=== PATIENT | male | born 1945 | race Caucasian/White ===

== ENCOUNTER 2023-08-30 18:13 | Observation (INO) | payer MEDICARE, SELFPAY ==
[2023-08-30] VITALS (8 sets, daily range): BP systolic 143–173; BP diastolic 72–104; BMI 24.1; BMI 23.7
--- NOTE | 2023-08-30 13:18 | ED.GENMED ---
History of Present Illness
General
Chief Complaint: Abdominal Symptoms
Source: patient
Exam Limitations: none
Time Seen by Provider: 08/30/23 13:07
Nursing documentation reviewed up to this point in time: agreed with
Travel History
Have you had any contact with someone who has COVID-19?: No
Do you have any symptoms of coronavirus? Fever > 100 degrees, chills, cough, shortness of breath, sore throat, loss of taste or smell, muscle aches, or headache?: No
History of Present Illness
History of Present Illness:
77-year-old male with past medical history of BPH presenting to the emergency department today with concerns of nausea vomiting and a little diarrhea over the past 4 days nausea vomiting was maximal 4 days ago and 3 days ago has improved but has had
some trouble tolerating by mouth feels like he may be dehydrated at this point does have some lightheadedness. Does have some ongoing nausea but no ongoing over the past 2 days. No abdominal pain.
Past History
Past History
ED Past Medical History: Hypercholesterolemia and Other (Prostate enlargement)
ED Past Surgical History: Urological
Social History
Tobacco: Non-smoker
Alcohol: None
Drug: None
Living: alone
Employment: Retired
Family History
Family History: Other (Noncontributory)
Review of Systems
Review of Systems
Allergies reviewed?: Yes
All Other Systems: ROS reviewed and negative except as documented in HPI and ROS
Phy Exam
Physical Exam
Physical Exam:
GENERAL: Alert , in no apparent distress
EYE: pupils equal and reactive
NECK: Supple, no significant adenopathy.
ENT: o/p clr, mmm.
CARDIAC: Regular rate and rhythm .
LUNGS: Clear breath sounds bilaterally, no acute respiratory distress, no wheezes/rales/rhonchi
ABDOMEN: Soft, without focal tenderness, no r/g, no cvat
NEUROLOGICAL: Alert and oriented, no focal neuro deficits
SKIN: Warm and dry, skin intact.
MUSCULOSKELETAL: No edema, well perfused.
PSYCH: Normal and appropriate interaction.
Course
Orders/Labs/Results
Orders:
Orders
08/30/23 13:17
0.9% Sodium Chloride 1000 ml [Nss] 1,000 ml IV BOLUS
Famotidine [Pepcid] 20 mg IV NOW STA
Ondansetron Injectable [Zofran] 4 mg IV NOW STA
08/30/23 13:18
Electrocardiogram (*1) Stat
Reason for Study: Abdominal Pain
EKG- Treatment ONCE
08/30/23 13:22
Complete Blood Count/With Diff Urgent
Comprehensive Metabolic Panel Urgent
Lipase Urgent
08/30/23 14:18
Urinalysis Reflex To Culture Urgent
Date Specimen was Collected: 08/30/23
Time Specimen was Collected: 14:08
08/30/23 17:41
Admit/Transfer Patient As Directed
Co-Sign Provider:
Level of Care: Observation services
Assign to:: Medical/Surgical
Physician / Group: matt
Diagnosis: gastroenteritis
08/30/23 17:42
Code Status As Directed
Resuscitation Status: Full Code
Abnormal Lab Results
08/30/23 08/30/23
13:22 14:18
WBC 12.2 H 10^3/uL
(4.8-10.8)
Absolute Neuts (auto) 10.3 H 10^3/uL
(1.4-6.5)
Absolute Lymphs (auto) 0.9 L 10^3/uL
(1.2-3.4)
Absolute Monos (auto) 1.0 H 10^3/uL
(0.1-0.6)
Neutrophils % 84.3 H %
(42.2-75.2)
Lymphocytes % 7.5 L %
(20.5-51.1)
BUN 26 H mg/dl
(9-20)
Glucose 184 H mg/dl
(70-99)
Urine Glucose Trace A
(Negative)
08/30/23 13:22
08/30/23 13:22
Vital Signs
Initial and Last Documented VS:
Initial Vital Signs
Temp Pulse Resp BP Pulse Ox
98.2 F 88 18 158/99 95
08/30/23 13:01 08/30/23 13:01 08/30/23 13:01 08/30/23 13:01 08/30/23 13:01
Last Documented Vital Signs
Temp Pulse Resp BP Pulse Ox
98.2 F 80 15 163/104 95
08/30/23 13:01 08/30/23 17:15 08/30/23 17:15 08/30/23 17:02 08/30/23 17:15
MDM/Problems Addressed
MDM/Problems Addressed:
77-year-old male presenting to the emergency department today with concerns of nausea vomiting and [place] diarrhea starting 4 days ago was maximal over the first 2 days and has improved but has decreased oral intake since. He feels that he may be
dehydrated feel some lightheadedness. Upon arrival vital signs are normal. No distress abdomen is benign. Patient claims he still feels lightheaded when walking he was given a liter fluid here. He feels unsafe going home he does live by himself
plan to admit for further monitoring overnight.
*Critical Care Note
Total Time (30-74mins, 75-104mins- exclusive of procedures): Not Applicable
ED Attending Note
-
Portions of this chart may have been created with voice recognition software.� Occasional wrong word or��sound alike� substitutions may have occurred due to the inherent limitations of voice recognition software.
Discharge Plan
Departure
Patient Disposition: Admit
Date of Disposition: 08/30/23
Time of Disposition: 18:07
Admit to: Med/Surg
Admit to doctor: Matt
Presentation/result/management discussed w/ accepting MD/DO: Hospitalist
Patient with high blood pressure during this ER visit?: No
Condition: Good
Covid-19: Not Applicable
Discharge Problem:
Vomiting, Lightheadedness
Prescriptions:
No Action
pravastatin 10 MG tablet
10 mg PO DAILY
finasteride 5 MG tablet
5 mg PO DAILY
Referrals:
Herman Mckinley MD [Family Provider] -
Interventions
Interventions:
*Risk Screen - Suicide Last Done: 08/30/23 13:21
*General Assessment Last Done: 08/30/23 13:21
*Neglect/Abuse Screening Last Done: 08/30/23 13:21
ED- Fall Risk Assessment Last Done: 08/30/23 13:21
*ED COVID-19 Vaccine History Last Done: 08/30/23 13:21
NM-Nanmdb-Ividcufeds Assessment Last Done: 08/30/23 13:21
Discharge Date and Time
Print Language: CHINESE
[2023-08-30] MEDS: NSS 1000 IV ×2 (13:25→19:44)
[2023-08-30] MEDS: ZOFRAN 4 MG IV (13:25)
[2023-08-30] MEDS: PEPCID 20 MG IV (13:25)
[2023-08-30 13:31] LABS: % Basophils 0.1 % (0-2); % Eosinophils 0.1 % (0-6); % Immature Granulocytes 0.2 % (0-0.5); % Lymphocytes 7.5 % (20.5-51.1); % Monocytes 7.8 % (1.7-9.3); % Neutrophils 84.3 % (42.2-75.2); Absolute Lymphocytes 0.9 10^3/uL (1.2-3.4); Absolute Neutrophils 10.3 10^3/uL (1.4-6.5); Hematocrit 45.8 % (39.0-52.0); Mean Corp Hgb Conc. 34.9 g/dL (33.0-37.0); Mean Corpuscular Volume 85.9 fL (80.0-94.0); Mean Platelet Volume 9.6 fL (7.4-10.4); Nucleated Red Blood Cells % 0 % (-); Platelet Count 273 10^3/uL (130-400); Red Blood Cell Count 5.33 10^6/uL (4.70-6.10); Red Cell Dist. Width 13.9 % (11.5-14.5); White Blood Cell Count 12.2 10^3/uL (4.8-10.8)
[2023-08-30 13:52] LABS: ALT (SGPT) 25 U/L (0-50); AST (SGOT) 27 U/L (17-59); Albumin 4.2 g/dl (3.5-5.0); Alkaline Phosphatase 79 U/L (38-126); Blood Urea Nitrogen 26 mg/dl (9-20); Calcium 9.2 mg/dl (8.4-10.2); Carbon Dioxide 30 mmol/L (22-30); Chloride 98 mmol/L (98-107); Estimated Creatinine Clearance 69 ml/min; Glucose 184 mg/dl (70-99); Lipase 40 U/L (23-300); Sodium 136 mmol/L (135-145); Total Bilirubin 0.7 mg/dl (0.2-1.3); Total Protein 7.6 g/dl (6.3-8.2); eGFR > 60.00
[2023-08-30 14:27] LABS: Urine Albumin Negative (Neg - Trace); Urine Bilirubin Negative (Negative); Urine Character Clear (Clear); Urine Color Yellow; Urine Glucose Trace (Negative); Urine Ketone Negative (Negative); Urine Leukocyte Negative (Negative); Urine Nitrite Negative (Negative); Urine Occult Blood Negative (Negative); Urine Urobilinogen Negative (Neg - 1+)
--- NOTE | 2023-08-30 17:44 | HPS.HSE ---
Family Physician
-
Family Physician: Herman Mckinley
Chief Complaint
-
dizziness
History of Present Illness
77-year-old male past medical history of BPH, hypercholesterolemia presenting to the emergency room with vomiting for 2 days starting on Wednesday. He had some mild diarrhea at that time as well. Vomiting resolved 2 days ago but he continues to feel
nauseous and had minimal p.o. intake. He denies any diarrhea at this time. Denies any abdominal pain or fevers or chills. He lives alone and denies any sick contacts. He denies eating any outside food that might cause gastroenteritis. He denies
any new medications.
He has been feeling dizzy which resulted in a fall injuring his right elbow. He denies passing out.
Dizziness did not improve with IV fluids given in ER. He did eat a granola bar which resulted in some improvement.
He denies smoking, alcohol use or drugs.
Medical History
Past Medical History
Past Medical History: Reports Other (BPH, hypercholesterolemia)
Past Surgical History: Reports Other (hernia surgery )
Social History
Tobacco: Non-smoker
Alcohol: None
Drug: None
Family History
Family History: Not pertinent
Allergies / Home Medications
Allergies reflects when Allergies were last updated in [employer].
Home Medications with original date entered in [facility]
Allergy/Medication List:
Allergies
Allergy/AdvReac Type Severity Reaction Status Date / Time
No Known Allergies Allergy Verified 08/03/22 10:18
Home Medications
finasteride 5 mg tablet 5 mg PO DAILY 01/18/16
pravastatin 10 mg tablet 10 mg PO DAILY 01/18/16
acetaminophen 500 mg tablet (Tylenol Extra Strength) 1,000 mg (2 x 500 mg) PO Q6HPRN PRN mild pain #1 tab 08/03/22
ibuprofen 200 mg tablet 400 - 600 mg (2 - 3 x 200 mg) PO Q6HPRN PRN moderate pain #1 tab 08/03/22
tramadol 50 mg tablet 50 mg PO Q6HPRN PRN severe pain/breakthrough pain #7 tabs 08/03/22
Review of Systems
-
History Source: Patient
A 12 point ROS was completed and negative except as noted: Yes
Constitutional: Reports No Symptoms
EENT: Reports No Symptoms
Respiratory: Reports No Symptoms
Cardiac: Reports No Symptoms
Abdomen/GI: Reports No Symptoms
: Reports No Symptoms
Musculoskeletal: Reports No Symptoms
Skin: Reports No Symptoms
Neurological: Reports No Symptoms
Endocrine: Reports No Symptoms
Hematologic/Lymphatic: Reports No Symptoms
Psych: Reports No Symptoms
Physical Exam
Vital Signs
Vital Signs
Temp Pulse Resp BP Pulse Ox
98.2 F 80 15 163/104 95
08/30/23 13:01 08/30/23 17:15 08/30/23 17:15 08/30/23 17:02 08/30/23 17:15
Physical Exam
General: Well Developed, Well Nourished and No Apparent Distress
HEENT: NormoCephalic, Moist mucous membranes and Atraumatic
Respiratory: Clear
Cardiac: S1/S2 and Regular Rhythm; No Murmur or Rub
GI: Soft, Non Tender, Non Distended and Normal Bowel Sounds; No Organomegaly
Rectal: Deferred by Provider
Musculoskeletal: No Clubbing, No Cyanosis and No Edema
Skin: No Rash
Neuro: Nonfocal/grossly intact
Laboratory Results
-
08/30/23 13:22
08/30/23 13:22
Laboratory Results
Total Bilirubin 0.7 mg/dl (0.2-1.3) 08/30/23 13:22
AST 27 U/L (17-59) 08/30/23 13:22
ALT 25 U/L (0-50) 05/27/24 13:22
Alkaline Phosphatase 79 U/L (38-126) 08/30/23 13:22
Lipase 40 U/L (23-300) 08/30/23 13:22
Data Reviewed
-
Lab Data: Labs Reviewed by me
Old Records: Reviewed
Impression/Plan
-
IMPRESSION:
PLAN:
# Dizziness secondary to volume losses likely from food poisoning/gastroenteritis
-Leukocytosis
-Urinalysis negative
-Continue gentle IV fluids
-Resume diet
BPH
-Continue finasteride
Hyperlipidemia
-Continue statin
Full code
DVT prophylaxis�heparin
BRAT diet
[2023-08-30] MEDS: HEPARIN 5000 UNITS SC (19:47)
--- NOTE | 2023-08-31 07:16 | W.PN.HOSP.TC ---
Today's Communication/Plan
-
Medically stable for discharge today if tolerates breakfast and able to ambulate without issues
Assessment / Plan
Assessment / Plan
Physical Exam
General: Well Developed, Well Nourished and No Apparent Distress
HEENT: NormoCephalic, Moist mucous membranes and Atraumatic
Respiratory: Clear
Cardiac: S1/S2 and Regular Rhythm; No Murmur or Rub
GI: Soft, Non Tender, Non Distended and Normal Bowel Sounds; No Organomegaly
Musculoskeletal: No Clubbing, No Cyanosis and No Edema
Skin: No Rash
Neuro: Nonfocal/grossly intact
77M BPH HLD p/w dizziness weakness following past few days nausea vomiting appetite loss. Vomiting resolved a few days ago but appetite loss persisted with associate dizziness. Reports poor oral intake past 5 days. Initial labs relatively benign,
mild leukocytosis likely stress reactive. Hypertensive asymptomatic afebrile. Observation overnight on IVF, reported improvement in symptoms refused morning labs requesting discharge.
# Dizziness secondary to volume losses likely from food poisoning vs viral gastroenteritis (more likely)
-mild Leukocytosis
-Urinalysis negative
-Continue gentle IV fluids
-BRAT diet
BPH
-Continue finasteride
Hyperlipidemia
-Continue statin
HTN
-asymptomatic
-follow up with primary recommended
Full code
DVT prophylaxis�heparin
Medically stable for discharge today, with outpatient follow up recommendations, if tolerates breakfast and able to ambulate without issues
Total Time Preparing Discharge ___35____ minutes including examination of the patient, summary of the hospital stay, instructions for continuing care to all relevant caregivers; and preparation of discharge records, prescriptions, and referral
forms if necessary.
Anticipated Discharge: Today
Subjective/Interval History
-
Date of Service: August 31, 2023
Seen and examined at bedside. Patient reports feeling well at this time. Dizziness resolved. Denies new acute issues. Reports good appetite. Appears to be tolerating breakfast well.
Objective Data
-
Labs:
Laboratory Results
08/31/23
06:00
WBC Pending
Hgb Pending
Hct Pending
Plt Count Pending
Sodium Pending
Potassium Pending
Chloride Pending
Carbon Dioxide Pending
BUN Pending
Creatinine Pending
Glucose Pending
Calcium Pending
Total Bilirubin Pending
AST Pending
ALT Pending
Alkaline Phosphatase Pending
Vital Signs:
Vital Signs
Temp Pulse Resp BP Pulse Ox
98.7 F 60 16 167/85 96
08/30/23 23:40 08/30/23 23:40 08/30/23 23:40 08/30/23 23:40 08/31/23 01:25
[2023-08-31 07:20] VITALS: BP 179/94
[2023-08-31] MEDS: PROSCAR 5 MG PO (08:05)
[2023-08-31] MEDS: PRAVACHOL 10 MG PO (08:05)
[2023-08-31] MEDS: HEPARIN 5000 UNITS SC (08:05)
--- NOTE | 2023-08-31 08:44 | W.DCSUMMARY ---
Discharge Summary
Discharge Data
Date of Admission: 08/30/23
Date of Discharge: 08/31/23
-
Pending Results: No
Discharge Plan
-
Patient Disposition: Home (Routine Discharge)
Discharge Diagnosis/Procedures: Dizziness secondary to volume losses poor oral intake likely from viral gastroenteritis vs food poisoning, mild leukocytosis, Hypertension
Condition: Fair
Diet: BRAT
Additional Diets: continue with BRAT diet for 1 day then advance as tolerated
Activity: As tolerated
Driving Restrictions: As prior to admission
Bathing Restrictions: None
Blood Work: Please repeat CBC and BMP with primary care provider in 1 week of discharge.
Referrals:
Herman Mckinley MD [Family Provider] - in one week
Prescriptions:
Continued
pravastatin 10 MG tablet
10 mg PO DAILY
finasteride 5 MG tablet
5 mg PO DAILY
Discharge Orders:
Discharge Patient (As Directed); Ordered 08/31/23
Ordered By: Derek Lundy
Discharge Date and Time
Print Language: NAMIBIAN
[2023-08-31 10:49] VITALS: BP 149/83
== END 2023-08-31 13:00 | disposition home or self-care (01) ==
LOC: 4 EAST ACU 18:13
PROVIDERS: Physician Assistant; ADMITTING PHYSICIAN Hospitalist; ATTENDING PHYSICIAN Internal Medicine; EMERGENCY PHYSICIAN Student in an Organized Health Care Education/Training Program; FAMILY PHYSICIAN Family Medicine
DX: R42 Dizziness and giddiness (principal); R11.2 Nausea with vomiting, unspecified; R10.9 Unspecified abdominal pain; R19.7 Diarrhea, unspecified; D72.829 Elevated white blood cell count, unspecified; I10 Essential (primary) hypertension; N40.0 Benign prostatic hyperplasia without lower urinary tract symptoms; E78.00 Pure hypercholesterolemia, unspecified; E78.5 Hyperlipidemia, unspecified; Z60.2 Problems related to living alone
CPT/HCPCS: 80053; 81003; 83690; 85025; 93005; 96361; 96374; 96375; 99285; G0378

== ENCOUNTER 2024-09-05 15:01 | Inpatient (IN) | payer MEDICARE, SELFPAY ==
[2024-09-04 17:30] VITALS: BMI 24.8
[2024-09-04 17:31] LABS: Glucose - Point of Care 175 mg/dl (70-99)
[2024-09-04 17:33] VITALS: BP 187/96
[2024-09-04 17:50] LABS: % Basophils 0.2 % (0-2); % Eosinophils 0.1 % (0-6); % Immature Granulocytes 0.5 % (0-0.5); % Lymphocytes 4.7 % (20.5-51.1); % Monocytes 5.7 % (1.7-9.3); % Neutrophils 88.8 % (42.2-75.2); Absolute Immature Granulocytes 0.1 10^3/uL (0-0.05); Absolute Lymphocytes 0.7 10^3/uL (1.2-3.4); Absolute Monocytes 0.8 10^3/uL (0.1-0.6); Absolute Neutrophils 13.1 10^3/uL (1.4-6.5); Hematocrit 45.1 % (39.0-52.0); Hemoglobin 15.5 g/dL (13.0-18.0); Mean Corp Hgb Conc. 34.4 g/dL (33.0-37.0); Mean Corpuscular Hgb 30.1 pg (27.0-31.0); Mean Corpuscular Volume 87.6 fL (80.0-94.0); Nucleated Red Blood Cells % 0 % (-); Platelet Count 290 10^3/uL (130-400); Red Blood Cell Count 5.15 10^6/uL (4.70-6.10); Red Cell Dist. Width 13.8 % (11.5-14.5); White Blood Cell Count 14.7 10^3/uL (4.8-10.8)
--- NOTE | 2024-09-04 18:05 | ED.CVA ---
History of Present Illness
General
Chief Complaint: CVA/TIA Symptoms
Time Seen by Provider: 09/04/24 17:55
Onset of Stroke Symptoms
Onset of symptoms known: No
Time pt last seen normal is known: Yes
Date last time pt seen normal: 09/03/24
History of Present Illness
History of Present Illness:
Patient is a 78-year-old male with history of hyperlipidemia presenting to the emergency department with falls. Patient states that he woke up this morning and had a fall as he was getting out of bed. He did not hit his head or lose consciousness.
He is not on any blood thinners. Since then he has had multiple falls throughout the day. He did not strike his head during any of them. He does feel slightly weak on his left side. He went to his primary care doctor where they noticed a facial
droop and leg and arm weakness and told him to come to the emergency department. He does state that this morning he noticed some slurring of his speech. No history of TIA. He states that he was last normal before he went to bed last night.
Past History
Past History
ED Past Medical History: Hypercholesterolemia and Other (Prostate enlargement)
ED Past Surgical History: Urological
Social History
Tobacco: Non-smoker
Alcohol: None
Drug: None
Living: alone
Employment: Retired
Family History
Family History: Other (Noncontributory)
Phy Exam
Physical Exam
Physical Exam:
GENERAL: in no acute distress
HEENT: normocephalic, extraocular movements intact, moist oral mucosa
NECK: normal inspection
RESPIRATORY: no respiratory distress, clear to auscultation bilaterally
CARDIOVASCULAR: regular rate and rhythm
ABDOMEN/: soft, non-distended, non-tender to palpation, no rebound or guarding
EXTREMITIES: non-tender, no edema/swelling
NEUROLOGIC: alert and oriented x 3, cranial nerves II-XII intact except for slight right-sided facial droop, right upper extremity strength 5/5, left upper extremity strength 4/5, right lower extremity strength 5/5, left lower extremity strength
4/5, normal sensation to light touch, normal [id number] and [id number], gait not tested formally
SKIN: warm
Scores
NIH Stroke Score
Level of Consciousness: 0 - Alert
LOC Questions: 0-Answers both correctly
LOC Commands: 0-Performs both correctly
Best Horizontal Gaze: 0-Normal
Visual Ray: 0=Normal, no visual loss
Facial Palsy: 1=Minor paralysis
Motor - Right Arm: 0=No drift 10 seconds
Motor - Left Arm: 1=Drift < 10 seconds
Motor - Right Le-No drift 5 seconds
Motor - Left Le-No drift 5 seconds
Limb Ataxia: 0-Absent
Sensation: 0-Normal
Best Language: 0-No aphasia
Dysarthria: 1-Mild slurring
Extinction and Inattention: 0-No abnormality
NIH Total Score:: 3
Course
Orders/Labs/Results
Orders:
Orders
09/04/24 17:42
Electrocardiogram (*1) Urgent
Reason for Study: TIA/Stroke
EKG- Treatment ONCE
09/04/24 17:43
Complete Blood Count/With Diff Urgent
Comprehensive Metabolic Panel Urgent
09/04/24 18:05
CT Head W/o Iv Contrast Urgent
Comment:
Reason For Exam: left sided weakness
09/04/24 18:37
Urinalysis Reflex To Culture Urgent
Date Specimen was Collected: 09/04/24
Time Specimen was Collected: 18:36
Urine Microscopic Reflex Cult Urgent
Urine Culture Urgent
KANG Source: U
Specimen Description:
Date Specimen was Collected: 09/04/24
Time Specimen was Collected: 18:36
Abnormal Lab Results
09/04/24 09/04/24 09/04/24
17:26 17:43 18:37
WBC 14.7 H 10^3/uL
(4.8-10.8)
Abs Immat Gran (auto) 0.1 H 10^3/uL
(0-0.05)
Absolute Neuts (auto) 13.1 H 10^3/uL
(1.4-6.5)
Absolute Lymphs (auto) 0.7 L 10^3/uL
(1.2-3.4)
Absolute Monos (auto) 0.8 H 10^3/uL
(0.1-0.6)
Neutrophils % 88.8 H %
(42.2-75.2)
Lymphocytes % 4.7 L %
(20.5-51.1)
Glucose 175 H mg/dl
(70-99)
Leukocyte Esterase Rfl 1+ A
(Negative)
Urine RBC 7-10 A /HPF
(0-2)
Urine Bacteria (Reflex) Few A
(Negative)
Urine Glucose 1+ A
(Negative)
POC Glucose 175 H mg/dl
(70-99)
09/04/24 17:43
09/04/24 17:43
Vital Signs
Initial and Last Documented VS:
Initial Vital Signs
Temp Pulse Resp BP Pulse Ox
99.8 F 107 16 187/96 95
09/04/24 17:33 09/04/24 17:33 09/04/24 17:33 09/04/24 17:33 09/04/24 17:33
Last Documented Vital Signs
Temp Pulse Resp BP Pulse Ox
99.8 F 116 19 187/96 95
09/04/24 17:33 09/04/24 19:45 09/04/24 19:45 09/04/24 17:33 09/04/24 19:45
MDM/Problems Addressed
Differential Diagnosis Includes:
Patient is a 78-year-old man presenting to the emergency department with recurrent falls and weakness. On arrival vitals are notable for hypertension. Exam does show mild right-sided facial droop, left upper extremity weakness with drift and left
lower extremity weakness without a drift and some mild dysarthria. His NIH score is 3. Differential consists of CVA versus traumatic intracranial injury versus metabolic derangement. patient unfortunately is out of the window for TNK and only has
mild symptoms so patient was not made a stroke alert. Will proceed with blood work EKG and CT scan of the head. He will need admission for further stroke workup.
*Critical Care Note
Total Time (30-74mins, 75-104mins- exclusive of procedures): Not Applicable
Update Note
Update Note:
CT scan per my interpretation with no obvious acute abnormality. Blood work does show slight leukocytosis. Patient without signs or symptoms of infection discussed with hospitalist accepted patient to their service.
ED Attending Note
-
Portions of this chart may have been created with voice recognition software.� Occasional wrong word or��sound alike� substitutions may have occurred due to the inherent limitations of voice recognition software.
Discharge Plan
Departure
Patient Disposition: Admit
Date of Disposition: 09/04/24
Time of Disposition: 20:46
Presentation/result/management discussed w/ accepting MD/DO: Hospitalist
Discharge Problem:
Weakness
Prescriptions:
No Action
pravastatin 10 MG tablet
10 mg PO DAILY
finasteride 5 MG tablet
5 mg PO DAILY
Referrals:
Herman Mckinley MD [Family Provider, Family Practice]
Interventions
Interventions:
*Risk Screen - Suicide Last Done: 09/04/24 17:40
*General Assessment Last Done: 09/04/24 17:40
*Neglect/Abuse Screening Last Done: 09/04/24 17:40
*ED- Fall Risk Assessment Last Done: 09/04/24 19:58
*ED COVID-19 Vaccine History Last Done: 09/04/24 19:58
ED- Pulmonary Assessment Last Done: 09/04/24 17:51
ED- Neurological Assessment Last Done: 09/04/24 17:51
ED- Cardiac Assessment Last Done: 09/04/24 17:51
ED Swallowing Screen Last Done: 09/04/24 17:51
Discharge Date and Time
Print Language: UGANDAN
[2024-09-04 18:07] LABS: ALT (SGPT) 20 U/L (0-50); AST (SGOT) 23 U/L (17-59); Albumin 4.7 g/dl (3.5-5.0); Alkaline Phosphatase 75 U/L (38-126); Blood Urea Nitrogen 17 mg/dl (9-20); Calcium 9.3 mg/dl (8.4-10.2); Carbon Dioxide 24 mmol/L (22-30); Chloride 107 mmol/L (98-107); Estimated Creatinine Clearance 76 ml/min; Glucose 175 mg/dl (70-99); Potassium 4.6 mmol/L (3.5-5.1); Sodium 140 mmol/L (135-145); Total Bilirubin 0.6 mg/dl (0.2-1.3); Total Protein 8.2 g/dl (6.3-8.2); eGFR > 60.00
[2024-09-04 18:45] LABS: Urine Albumin Negative (Neg - Trace); Urine Bilirubin Negative (Negative); Urine Character Clear (Clear); Urine Color Yellow; Urine Glucose 1+ (Negative); Urine Ketone Negative (Negative); Urine Leukocyte 1+ (Negative); Urine Nitrite Negative (Negative); Urine Occult Blood Negative (Negative); Urine Urobilinogen Negative (Neg - 1+)
[2024-09-04 18:54] LABS: Urine Bacteria Few (Negative)
[2024-09-04 20:02] VITALS: BP 173/103
[2024-09-04 21:00] VITALS: BP 183/109
--- NOTE | 2024-09-04 21:04 | HPS.HSE ---
Family Physician
-
Family Physician: Herman Mckinley
Chief Complaint
-
multiple falls
History of Present Illness
Patient is a 78-year-old male with past medical history significant for BPH and hypercholesterolemia who presented to [facility] ED for evaluation of multiple falls at home. Patient reports waking up this morning around 0800 and when getting out of bed he
fell forward. He reports several 'almost' falls that he was able to grab onto a doorway or wall to prevent and then had a second fall later on where it took him approximately 5 minutes to get up. He called his primary care and was seen at 1615. At
that visit they were concerned for left sided weakness and facial droop and referred him to ED for evaluation and treatment. Patient denies any recent illness, dizziness, fever, chills, cough, shortness of breath, chest pain, palpitations, nausea,
vomiting, constipation, diarrhea or urinary symptoms.
Medical History
Past Medical History
Past Medical History: Reports Other
Additional Past Medical History:
BPH
hypercholesterolemia
Past Surgical History: Reports Other
Additional Past Surgical History:
hernia surgery
Social History
Tobacco: Non-smoker
Alcohol: None
Drug: None
Living: Alone
Employment: Retired
Family History
Family History: Not pertinent
Allergies / Home Medications
Allergies reflects when Allergies were last updated in [employer].
Home Medications with original date entered in [employer]
Allergy/Medication List:
Allergies
Allergy/AdvReac Type Severity Reaction Status Date / Time
No Known Allergies Allergy Verified 09/04/24 17:31
Home Medications
finasteride 5 mg tablet 5 mg PO DAILY 01/18/16
pravastatin 10 mg tablet 10 mg PO DAILY 01/18/16
Review of Systems
-
History Source: Patient
Constitutional: Reports No Symptoms
EENT: Reports No Symptoms
Respiratory: Reports No Symptoms
Cardiac: Reports No Symptoms
Abdomen/GI: Reports No Symptoms
: Reports No Symptoms
Musculoskeletal: Reports No Symptoms
Skin: Reports No Symptoms
Neurological: Reports Weakness and Other (abnormal gait, multiple falls )
Endocrine: Reports No Symptoms
Hematologic/Lymphatic: Reports No Symptoms
Psych: Reports No Symptoms
Physical Exam
Vital Signs
Vital Signs
Temp Pulse Resp BP Pulse Ox
99.8 F 116 19 187/96 95
09/04/24 17:33 09/04/24 19:45 09/04/24 19:45 09/04/24 17:33 09/04/24 19:45
Physical Exam
General: Well Developed, Well Nourished, No Apparent Distress, Comfortable and Conversant
HEENT: NormoCephalic, Moist mucous membranes, Atraumatic, Nose Appears Normal and Ears Appear Normal
Respiratory: Clear
Cardiac: S1/S2, Regular Rhythm and Tachycardia
Breast: Deferred by me
GI: Soft, Non Tender, Non Distended and Normal Bowel Sounds
Rectal: Deferred by Provider
Genito-urinary: Deferred by me
Musculoskeletal: No Clubbing, No Cyanosis and No Edema
Skin: Warm and IV/Catheter Site
Neuro: Awake, Alert, AO x 3, Nonfocal/grossly intact and Cranial Nerves Intact (2-12 intact with slight left sided facial droop, mild left sided weakness on upper and lower extremity )
Psych: Calm and Intact Judgment/Insight
Laboratory Results
-
09/04/24 17:43
09/04/24 17:43
Laboratory Results
Total Bilirubin 0.6 mg/dl (0.2-1.3) 09/04/24 17:43
AST 23 U/L (17-59) 09/04/24 17:43
ALT 20 U/L (0-50) 09/04/24 17:43
Alkaline Phosphatase 75 U/L (38-126) 09/04/24 17:43
Data Reviewed
-
CT Scan: Report Reviewed by me (Head CT: No acute intracranial abnormality noted. Chronic senescent changes.)
Medical Tests (Nuc Med, Echo, EKG etc): Report Reviewed by me (EKG: SINUS TACHYCARDIA LEFT VENTRICULAR HYPERTROPHY WITH REPOLARIZATION ABNORMALITY ( R in aVL ))
Lab Data: Labs Reviewed by me (WBC 14.7, Neut 88.8)
Impression/Plan
-
IMPRESSION/PLAN:
#CVA/TIA
last known normal last night
WBC 14.7, Neut 88.8
EKG: SINUS TACHYCARDIA
LEFT VENTRICULAR HYPERTROPHY WITH REPOLARIZATION ABNORMALITY ( R in aVL )
Head CT: No acute intracranial abnormality noted. Chronic senescent changes.
- Admit to telemetry
- Consult Neurology
- MRI in morning
- Start aspirin and Plavix
- PRN hydralazine for BP >220/100 to allow for permissive hypertension
#BPH
- continue finasteride
#hypercholesterolemia
- continue pravastatin
Code status: full code
DVT prophylaxis: SCDs
--- NOTE | 2024-09-04 21:57 | W.PN.UPDATE ---
Update Note
Progress Note Update
This is an addendum to H&P written by Annmarie Rich in 09/04/2024.
77-year-old male past medical history of BPH, hypercholesterolemia presenting with multiple falls at home. He last felt normal last night before he went to bed around 8 PM and woke up this morning around 8 AM unable to ambulate and falling. He
felt weak on his left side with slurred speech and saw his primary care physician and noted facial droop and left arm weakness.
No infectious symptoms.
Labs show leukocytosis.
Blood pressure 180s.
He had NIH of 3 secondary to mild slurring, mild facial palsy and left arm drift under [address] head shows no acute abnormality.
Patient is out of the 24-hour window for any urgent stroke interventions. Permissive hypertension up to 220 systolic. Check A1c and lipid panel. Start aspirin and Plavix. MRI brain. Neurology consulted.
[2024-09-04 22:00] VITALS: BP 116/91
[2024-09-04] MEDS: ASPIRIN 325 MG PO (22:16)
[2024-09-04] MEDS: PLAVIX 300 MG PO (22:17)
[2024-09-04] MEDS: FLUSH (NSS) 1 FLUSH IV (22:19)
[2024-09-04 23:00] VITALS: BP 171/107; BP 178/109; BMI 23.6
[2024-09-05] VITALS (15 sets, daily range): BP systolic 152–216; BP diastolic 104–133; PULSE 79–80; O2SAT 94; BMI 23.5; BMI 23.4
--- NOTE | 2024-09-05 04:47 | TRANSFER ---
Pt transported to 3W from ED via stretcher and pulled over to hospital bed. Pt oriented to room, call theodore within reach, plan of care ongoing.
[2024-09-05 06:05] LABS: HDL Cholesterol 51 mg/dl; LDL Cholesterol, Calculated 122 mg/dl; Total Cholesterol 187 mg/dl (50-199); Triglyceride 72 mg/dl (10-149); Very Low Density Lipoprotein 14 mg/dl (0-30)
[2024-09-05 06:55] LABS: Hepatitis C Antibody Negative (Negative)
--- NOTE | 2024-09-05 08:25 | PTCARENOTE ---
Addendum entered by Zulay Bajwa RN 09/05/24 13:13:
informed this RN ok to administer aspirin.
Original Note:
Bright red blood from penis observed. made aware, instructed this RN to hold aspirin and Plavix.
[2024-09-05] MEDS: PRAVACHOL 10 MG PO (08:26)
[2024-09-05] MEDS: LOW STRENGTH ASPIRIN PO (08:26)
[2024-09-05] MEDS: PROSCAR 5 MG PO (08:26)
--- NOTE | 2024-09-05 08:40 | PTOTSP ---
Speech Language Pathology
Pt seen for speech/language evaluations. Pt with mild dysarthria. He was 100% intelligible in known contexts, 95% in unknown contexts. Question nasal emission. Language evaluated via the Quick Aphasia Battery (QAB), form 1. Pt with mild mixed
aphasia. Pt with an overall score of 9.49, indicative of skills WFL. Pt scored 7.92 on sentence comprehension subtest, indicative of mild impairment.
Pt also seen for clinical bedside swallow evaluation. P.O. trials of puree and thin liquids provided. Audible swallow noted, indicative of incoordination. Pt stating that swallow felt 'tight.' Overt cough with 2/3 sips of thin liquids. Slight
change in vocal quality with puree.
Recommend:
(1) NPO except sips of water
(2) VSE
(3) Oral care 4x/day with suctioning as needed
(4) REHAB CONSULTANT to continue to follow
--- NOTE | 2024-09-05 11:00 | PTOTSP ---
Speech Language Pathology
VIDEOFLUOROSCOPIC SWALLOWING EXAMINATION (VSE) completed. Mild oral and mild-mod pharyngeal dysphagia noted. Trace to mild amount of pharyngeal residue noted. Responsive aspiration (PAS 7) with ineffective cough response noted with consecutive
straw sips of thin and mildly thick liquids. Silent aspiration (PAS 8) noted with single cup sip of thin liquids when used as a liquid wash. Suspect silent secondary to smaller volume of aspirated material.
Recommend:
(1) Regular solids/mildly thick liquids
(2) Aspiration precautions: sit upright, single cup sips only (no straws), slow rate
(3) Meds whole in puree
(4) Allow sips of thin water via cup and ice chips between meals post oral care per Aspiration Risk Hydration Protocol (ARHP)
(5) PAPER CUTTING MACHINE OPERATOR to continue to follow
--- NOTE | 2024-09-05 11:07 | CON.MD ---
Consultation - Medical
-
Chief Complaint:�Stroke
�
History of Present Illness:�78-year-old left-handed male with PMH (as below) presented to [facility] on 09/04/2024 with multiple falls and left sided weakness concerning for stroke. Initial CT of the head negative for acute intracranial
abnormality, chronic senescent changes. Started on aspirin and Plavix as patient is out of the window for thrombectomy/tenecteplase. A lot of for permissive hypertension with blood pressure in the 180s. Seen by speech and made n.p.o. except for
sips of water because of dysphagia. Noted with mild dysarthria and mild mixed aphasia.
Overall patient feels like he is worse today than yesterday, he drove himself to the doctor's office yesterday but having more weakness and more speech concerns. Denies any vision concerns. Denies any numbness or tingling at this time. Has some
difficulty with swallowing, initially made n.p.o. by speech.
�
Past Medical History:�BPH, hypercholesterolemia
Procedure History:�Hernia surgery
Family History:�None pertinent
�
Social History:�
Functional Level Premorbidly:�Independent with all activities�
Functional Level Currently:�Max assist toileting and lower extremity self-care. Mod assist upper extremity self-care. Max assist bed mobility. Mod assist transfer of 2
�
Tobacco:�Denies�
Alcohol:�Denies�
Drug use:�Denies�
�
Lives with:�Alone
24-hour assistance available:�No. Has a sister who lives in [place].
Number of floors:�1
# steps to enter:�4 steps up and 4 steps down
Driving:�Yes
Occupation:�Retired, works part-time in commercial insurance/employer benefits
�
�
Allergies:�
Allergy/AdvReac Type Severity Reaction Status Date / Time
No Known Allergies Allergy Verified 09/04/24 17:31
�
Review of Systems:�
Constitutional: (x) abNormal _fatigue
Eye: (x) Normal _
Ear/Nose/Throat: (x) abNormal _difficulty talking and swallowing difficulty
Respiratory: (x) Normal _
Cardiovascular: (x) Normal _
Gastrointestinal: (x) Normal _
Genitourinary: (x) Normal _
Musculoskeletal: (x) Normal _
Integumentary: (x) Normal _
Neurologic: (x) abNormal _stroke with left-sided weakness, difficulty swallowing, difficulty talking
Psychiatric: (x) Normal _
Endocrine: (x) Normal _
Hematologic/Lymphatic: (x) Normal _
Allergic/Immunologic: (x) Normal _
�
Medications:�
Active Current Visit Medication List
Category Date Time Status
Acetaminophen [Tylenol] Med 09/04/24 22:56 Active
650 mg PO Q4HPRN PRN
Aspirin Chewable [Low Strength Aspirin] Med 09/05/24 08:00 Active
81 mg PO DAILY
Clopidogrel Bisulfate [Plavix] Med 09/05/24 08:00 Active
75 mg PO DAILY
Enoxaparin Sodium [Lovenox] Med 09/05/24 18:00 Active
40 mg SC QPM
Finasteride [Proscar] Med 09/05/24 08:00 Active
5 mg PO DAILY
Flush (0.9% Sodium Chloride) [Flush (Nss)] Med 09/04/24 22:00 Active
See Dose Instructions IV PER PROTOCOL
HydrALAZINE [Apresoline] Med 09/04/24 22:56 Active
5 mg IV Q4HPRN PRN
Pravastatin Sodium [Pravachol] Med 09/05/24 08:00 Active
10 mg PO DAILY
�
Vitals:�
Temp Pulse Resp BP Pulse Ox
98.6 F 72 15 185/110 94
09/05/24 08:05 09/05/24 08:05 09/05/24 08:05 09/05/24 08:05 09/05/24 08:05
Height 5 ft 8 in
Actual Weight 70.171 kg
Body Mass Index (BMI) 23.5
�
Physical Exam:�
General Appearance/Observation: Well-developed, well-nourished male in no apparent distress.�
Pain/Comfort Assessment: Denies�
Mood/Affect: Appropriate�
�
Integumentary/Operative Site:�
�� Pressure Ulcer Evaluation: absent over heels.�
�
Eyes: Conjunctiva/Lids: normal��� Pupils: pupils equal round and reactive to light and Accommodation
Ears/Nose/Throat: oral mucosa moist, throat clear.������������ Lips/Teeth/Gums: normal
Cardiovascular: Heart: regular, no murmur�
Pulses: dorsalis pedis 2+ bilaterally�
Respiratory: Respiratory Effort/Chest Expansion: normal������ Auscultation: Clear to auscultation bilaterally
Gastrointestinal: abdomen not tender, no distension, normal abdominal bowel sounds
Genitourinary: No Goode�
Rectal Exam: Deferred�
Extremities:�Edema: None�Cyanosis: None�Trophic�changes: None
�
Neurology Exam:
Orientation: Alert, Oriented to self, Time, Place�
Memory: Intact for recent medical concerns
Repetition: Intact
Comprehension: Intact
Two step command: Intact
Cranial Nerves:
�� CNII:�Pupillary light reflex: Intact���Visual Field: Intact
�� CN III, IV, : Extraocular muscles: Intact�
�� CN V:�Facial Sensation�at�Forehead: Intact,�Maxilla: Intact,�Mandible: Intact
�� CN VII:�Facial movement: Left facial weakness
�� CN VIII:�Hearing: Normal
�� CN IX/X:�Speech & swallow: Dysarthria, dysphagia�position of Uvula: Midline
�� CN XI:�Shoulder shrug: Decreased on left
�� CN XII:�Tongue protrusion: Midline
Sensory:
�� Light touch: Intact in bilateral upper and lower extremities, no extinction to double simultaneous stimulation.
�
Reflexes:
�� Biceps: 2+ bilaterally
�� Brachioradialis: 2+ bilaterally
�� Triceps: 2+ bilaterally
�� Patellar: 2+ right, 3+ left
�� Achilles: 2+ bilaterally
�� Babinski: Down going bilaterally
�� Clonus: None
�� Marisela: Negative bilaterally�
Cerebellar: Dysmetria/Ataxia: None�on right, unable to test on left
Musculoskeletal:Motor: (Manual muscle scale 0-5)�
Muscle SA EF WE EE FF FA HF KE DF EHL PF
Right� 5 5 5 5 5 5 5 5 5 5 5
Left 1 2 1 1 2 1 2 3+ 2 2 2
�
Tone: Normal on right, mild increase on left
Range of Motion: Passively within normal limits in all extremities�
�
Lab Results
Laboratory Data
09/04/24 17:43
09/04/24 17:43
Total Bilirubin 0.6 mg/dl (0.2-1.3) 09/04/24 17:43
AST 23 U/L (17-59) 09/04/24 17:43
ALT 20 U/L (0-50) 09/04/24 17:43
Alkaline Phosphatase 75 U/L (38-126) 09/04/24 17:43
Total Protein 8.2 g/dl (6.3-8.2) 09/04/24 17:43
Albumin 4.7 g/dl (3.5-5.0) 09/04/24 17:43
�
Diagnostic Results:�as per HPI�
�
Assessment
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
Plan�
PM&R�PT/OT to increase independence with ADLs, improve balance, coordination, endurance, strength, mobility, community reintegration, decreased burden of care on others and family education.�
�
CVA: Secondary prophylaxis with aspirin and Plavix jann for 21 days followed by aspirin lifelong, statin, and blood pressure control (SBP less than 180 and diastolic less than 100 to participate with therapy for ischemic stroke). Continue to
monitor neurologic status.�
Left dominant hemiparesis: High risk for falls and sliding out of chair/bed. Safety reinforced.�
- Avoid using affected arm to help lift or pull patient as this will cause trauma to the shoulder.
-Ordered a left Multi-Podus boot
Left Neglect: makes patient at increased risk for falls.� Will need therapy to work on scanning of environment for safe navigation.�
Dysphagia: speech made patient n.p.o. for now with video swallow results pending. Oral care protocol, aspiration precautions.� Advance diet as tolerated.�
Dysarthria: speech �
Aphasia: speech �
Increased tone:� Adjust medications as needed.� Continue range of motion exercises and stretching program.��
�
HTN: Hydralazine as needed with permissive hypertension, monitor closely�
HLD: Statin�
Leukocytosis: Unclear etiology, possible aspiration? Monitor
Psych: Psychology consult.� Monitor mood, medications as needed.�
Skin: monitor for pressure sores/rashes/lesions.�
Pain: acetaminophen as needed.�
Bowel: Colace and Senna, PRN bisacodyl.�
Bladder: Time void, PVRs, PRN straight cath.� History of BPH on Proscar.
DVT Prophylaxis: Mechanical and Lovenox
Pulmonary: Incentive spirometry�
Safety: Continue to reinforce assistance with all transfers.�
Code Status:� Full code
Dispo�(date/plan/equipment needs): Home with family care.� Social history reviewed.�
Functional and Medical Goals:�Modified Independent with ADL�s, ambulation, transfers�
Discharge Destination:�Acute inpatient rehabilitation
-A total of 60 minutes were spent with the patient preparing for the evaluation, obtaining history, performing examination and evaluation, counseling, data review, case management, care coordination, order schedule clerk, and EMR documentation.
�
Summary of recommendations:
-�Discharge Destination:�Acute inpatient rehabilitation
CVA: Secondary prophylaxis with aspirin and Plavix likley for 21 days followed by aspirin lifelong, statin, and blood pressure control (SBP less than 180 and diastolic less than 100 to participate with therapy for ischemic stroke). Continue to
monitor neurologic status.�
Left dominant hemiparesis: High risk for falls and sliding out of chair/bed. Safety reinforced.�
- Avoid using affected arm to help lift or pull patient as this will cause trauma to the shoulder.
-Ordered a left Multi-Podus boot
Left Neglect: makes patient at increased risk for falls.� Will need therapy to work on scanning of environment for safe navigation.�
Dysphagia: speech made patient n.p.o. for now with video swallow results pending. Oral care protocol, aspiration precautions.� Advance diet as tolerated.� Possible cause of leukocytosis?
Dysarthria: speech �
Aphasia: speech �
Increased tone:� Adjust medications as needed.� Continue range of motion exercises and stretching program.��
Bowel: Colace and Senna, PRN bisacodyl.�
Bladder: Time void, PVRs, PRN straight cath.� History of BPH on Proscar.�
�
Thank you for allowing me to care for your patient. Please contact me with any questions or concerns.
Consultation
-
Date/Time Consultation Performed: 09/05/2024
Requesting Provider: Dr. Isabell Etienne
Performing Provider: Dr. Herman Guerrero
Reason for Consultation: Stroke rehabilitation
[2024-09-05 11:16] LABS: Glycohemoglobin (HgbA1c) 6.2 % (4.0-5.6)
[2024-09-05 11:19] LABS: Vitamin B12 188 pg/ml (239-931)
--- NOTE | 2024-09-05 11:26 | PTCARENOTE ---
NIH increased for this RN to 8. Weakness on LUE and LLE, slur, L facial droop and ataxia in LUE and LLE observed, neurologist made aware.
[2024-09-05] MEDS: LOW STRENGTH ASPIRIN 81 MG PO (13:13)
--- NOTE | 2024-09-05 13:16 | PTCARENOTE ---
Pt informed this RN he feels weaker than yesterday. Neurologist made aware.
--- NOTE | 2024-09-05 14:11 | W.PN.HOSP.TC ---
Addendum entered and electronically signed by Isabell Etienne MD 09/05/24 16:10:
Urology is okay with patient being started on Plavix. Restarted
Addendum entered and electronically signed by Isabell Etienne MD 09/05/24 15:20:
Spoke to daughter and updated. She lives in [place].
Addendum entered and electronically signed by Isabell Etienne MD 09/05/24 14:17:
Permissive hypertension in setting of stroke
Bleeding from the penis-hold off on Plavix until gets urology clearance. Consulted urology.
Addendum entered and electronically signed by Isabell Etienne MD 09/05/24 14:14:
Left a message for daughter
Original Note:
Today's Communication/Plan
-
MRI
PT OT
Assessment / Plan
Assessment / Plan
78 y/o with falls. He woke up with weakness of the left side he waited and called PCP office and saw them around 4 PM he was seen there and was had asked to go to ER.
On examination patient is awake alert
Facial droop left
Left neglect
Left Hemiparesis
Dysarthria
Cardiovascular system S1-S2 appreciated
Chest clear to auscultation
Abdomen soft and nontender
Head CT-no acute changes
EKG-sinus tachycardia, LVH
# Multiple Falls, left facial droop, left side weakness.
NIH is 8
Likely secondary to CVA-left hemiplegia on exam
Was out of the window for thrombolytic therapy per Admit note.
Follow on telemetry
MRI ordered
Add MRA COW and Neck
NIH and neuro checks
Check echo
Continue aspirin and hold Plavix due to Penile bleed ( resume when OK from Urology)
Neurology evaluation already requested. Messaged
Patient was cleared by speech
Physiatry was consulted per request from PT this morning
# Leukocytosis-follow. CXR ordered
# B 12 Def- Replace
# Enlarged prostate-continue finasteride
# Hyperlipidemia-continue pravastatin
# History of nephrolithiasis
# DVT prophylaxis-Lovenox added
# Full code
Discussed with physical therapy
D/W RN at bed side
Part of this note was created using voice recognition system. Occasional wrong word or��sound alike� substitutions may have inadvertently occurred due to the inherent limitations of voice recognition software. If noted kindly bring it to my
attention for correction.
Anticipated Discharge: > 48 hours
Subjective/Interval History
-
Date of Service: September 05, 2024
Objective Data
-
Vital Signs:
Vital Signs
Temp Pulse Resp BP Pulse Ox
97.2 F 83 17 200/112 94
09/05/24 12:45 09/05/24 12:45 09/05/24 12:45 09/05/24 12:45 09/05/24 12:45
I&O
09/04/24 09/05/24 09/06/24
06:59 06:59 06:59
Intake Total 240 / 240
Output Total 700 / 700
Balance -460 / -460
--- NOTE | 2024-09-05 15:10 | CONS.URO ---
Consultation
-
Date/Time Consultation Performed: 09/05/2024 1555
Performing Provider: Mauricio
Reason for Consultation: hematuria
Medical History
History of Present Illness
78 yo male admitted via ED yesterday for repeated falls, apparently due to CVA.
01/[address] Branch for gross hematuria --> biopsy c/w benign urethral lesion
pt reported again with blood per urethra -- he reports capacity to void with slight discomfort
Past Medical History
Past Surgical History: Urological (cystoscopy with biopsy or urethral lesion) and Other (hernia repair)
Allergies/Home Medications
Allergies
Allergy/AdvReac Type Severity Reaction Status Date / Time
No Known Allergies Allergy Verified 09/04/24 17:31
Home Medications
�Medication �Instructions �Recorded �Confirmed �Type
finasteride 5 mg tablet 5 mg PO DAILY 01/18/16 09/04/24 History
pravastatin 10 mg tablet 10 mg PO DAILY 01/18/16 09/04/24 History
Physical Exam
Vital Signs
Vital Signs
Temp Pulse Resp BP Pulse Ox
97.2 F 83 17 200/112 94
09/05/24 12:45 09/05/24 12:45 09/05/24 12:45 09/05/24 12:45 09/05/24 12:45
Lab / Testing Results
Laboratory Results
09/04/24 17:43
09/04/24 17:43
Physical Exam
adult male supine in bed
appears hemiparetic
Genito-urinary: Other (dried blood at meatus)
Assessment / Plan
-
recurrent hematuria -- presumed benign etiology given prior evaluation
alright to start anticoagulant
Data Reviewed
-
Lab Data: Labs Reviewed
Old Records: Reviewed
--- NOTE | 2024-09-05 15:28 | PTCARENOTE ---
Neurologist made aware of consult and responded to this RN via tiger text.
[2024-09-05] MEDS: CYANOCOBALAMIN 1000 MCG IM (16:03)
--- NOTE | 2024-09-05 16:17 | CON.NEURO ---
Neuro Assessment/Plan
Assessment
09/[address] perfusion which showed proximal right M2 stenosis, no LVO, no core, no penumbra
was not TNK candidate as LKN was night before presentation; not thrombectomy candidate
with evolving stroke, would allow permissive HTN 220/110 overnight
secondary prevention would do DAPT 90 days, Lipitor 80 as per SAMMPRIS trial showing superiority over stenting
Eventual brain MRI
Consultation
Order
Date of Consultation: 09/05/24
Requesting Provider: Isabell Etienne
Reason for Consult: stroke
Subjective/Objective
Subjective Data
Date of Service: September 05, 2024
From ED notes:
Patient is a 78-year-old male with past medical history significant for BPH and hypercholesterolemia who presented to [facility] ED for evaluation of multiple falls at home. Patient reports waking up this morning around 0800 and when getting out of bed he
fell forward. He reports several 'almost' falls that he was able to grab onto a doorway or wall to prevent and then had a second fall later on where it took him approximately 5 minutes to get up. He called his primary care and was seen at 1615. At
that visit they were concerned for left sided weakness and facial droop and referred him to ED for evaluation and treatment. Patient denies any recent illness, dizziness, fever, chills, cough, shortness of breath, chest pain, palpitations, nausea,
vomiting, constipation, diarrhea or urinary symptoms.
Initial NIHSS was 3, patient was not a candidate for TNK out of the window as LKN when he went to bed the night before. Not a thrombectomy candidate due to low NIH, patient admitted to floors for workup, started DAPT, pravachol increased to 40
Today the patient symptomatically worsened throughout the day. At time of my eval this afternoon, NIHSS was 8; and with NIHSS now more than 8, stat CTA and CT perfusion which showed proximal right M2 stenosis, no LVO, no core, no penumbra
today with hematuria.
Objective Data
Vital Signs
Temp Pulse Resp BP Pulse Ox
36.8 C 87 16 174/104 94
09/05/24 16:10 09/05/24 16:10 09/05/24 16:10 09/05/24 16:10 09/05/24 16:10
Lab Results
09/04/24 17:43
09/04/24 17:43
Sodium 140 mmol/L (135-145) 09/04/24 17:43
Potassium 4.6 mmol/L (3.5-5.1) 09/04/24 17:43
BUN 17 mg/dl (9-20) 09/04/24 17:43
Glucose 175 mg/dl (70-99) H 09/04/24 17:43
Calcium 9.3 mg/dl (8.4-10.2) 09/04/24 17:43
LDL Cholesterol, Calc 122 mg/dl 09/05/24 05:18
Vitamin B12 188 pg/ml (239-931) L 09/05/24 05:18
Patient Allergies
No Known Allergies Allergy (Verified 09/04/24 17:31)
CVA Assessment
Onset of Stroke Symptoms
Date last time pt seen normal: 09/03/24
NIH Stroke Score
Level of Consciousness: 0 - Alert
LOC Questions: 0-Answers both correctly
LOC Commands: 0-Performs both correctly
Best Horizontal Gaze: 0-Normal
Visual Ray: 0=Normal, no visual loss
Facial Palsy: 1=Minor paralysis
Motor - Right Arm: 0=No drift 10 seconds
Motor - Left Arm: 3=None vs. gravity
Motor - Right Le-No drift 5 seconds
Motor - Left Le-None vs. gravity
Limb Ataxia: 0-Absent
Sensation: 0-Normal
Best Language: 0-No aphasia
Dysarthria: 1-Mild slurring
Extinction and Inattention: 0-No abnormality
NIH Total Score:: 8
Physical Exam
-
AAOx3, slow to process, mild dysarthria,
left nasolabial flattening
Dense left hemiparesis, slight movement, no effort against gravity
Medications
-
Active Medications
Generic Name Dose Route Start Last Admin
Trade Name Freq PRN Reason Stop Dose Admin
Acetaminophen 650 mg 09/04/24 22:56
Acetaminophen 325 Mg Tablet PO 10/02/24 22:55
Q4HPRN PRN
REIS, mild pain, or temp >100.4F
Acetaminophen 650 mg 09/05/24 14:08
Acetaminophen 650 Mg Rectal Suppository RECTAL 10/03/24 14:07
Q4HPRN PRN
REIS, mild pain, or temp >100.4F
Aspirin 81 mg 09/05/24 08:00 09/05/24 13:13
Aspirin 81 Mg Chewable Tablet PO 10/03/24 07:59 81 mg
DAILY GABO Administration
Clopidogrel Bisulfate 75 mg 09/05/24 17:00
Clopidogrel 75 Mg Tablet PO 10/03/24 16:59
DAILY GABO
Cyanocobalamin 1,000 mcg 09/05/24 15:00 09/05/24 16:03
Cyanocobalamin (1000 Mcg/Ml) 1 Ml Vial IM 10/03/24 14:59 1,000 mcg
DAILY GABO Administration
Enoxaparin Sodium 40 mg 09/05/24 18:00
Enoxaparin Sodium 40 Mg/0.4 Ml Syringe SC 10/03/24 17:59
QPM GABO
Finasteride 5 mg 09/05/24 08:00 09/05/24 08:26
Finasteride 5 Mg Tablet PO 10/03/24 07:59 5 mg
DAILY GABO Administration
Hydralazine HCl 5 mg 09/04/24 22:56
Hydralazine 20 Mg/Ml Vial IV 10/02/24 22:55
Q4HPRN PRN
BP > 220/100
Pravastatin Sodium 40 mg 09/05/24 18:00
Pravastatin 40 Mg Tablet PO 10/03/24 17:59
QPM GABO
Sodium Chloride 0 flush 09/04/24 22:00 09/04/24 22:19
Sodium Chloride 0.9% (Flush) Syringe IV 10/02/24 21:59 1 flush
PER PROTOCOL GABO Administration
Home Medications
�Medication �Instructions �Recorded
finasteride 5 mg tablet 5 mg PO DAILY 01/18/16
pravastatin 10 mg tablet 10 mg PO DAILY 01/18/16
[2024-09-05 16:33] LABS: Glucose - Point of Care 80 mg/dl (70-99)
--- NOTE | 2024-09-05 16:43 | RR ---
A Rapid Response was called on this patient, please see Rapid Response form.
Increased slurred speech and weakness observed on L side with an increased L facial droop. Pt informed this RN, 'My left arm sensation feels worse'. Stroke alert and rapid response called. Rapid response team and neurologist at bedside.
--- NOTE | 2024-09-05 16:44 | W.PN.UPDATE ---
Update Note
Progress Note Update
Pt had more slurry speech.
Neuro at bed side.
Pt awake and alert able to answer questions.
Left hemiplegia, looks unchanged from earlier when I saw him.
Weak Hand grasp, able to move toes only on the left
Speech is slurry.
( Pt is left handed)
CT perfusion scan now.
Urology OK for Plavix
D/W Neuro
D/W RN at bed side
[2024-09-05 16:50] LABS: Hematocrit 48.5 % (39.0-52.0); Hemoglobin 16.7 g/dL (13.0-18.0); Mean Corp Hgb Conc. 34.4 g/dL (33.0-37.0); Mean Corpuscular Hgb 29.9 pg (27.0-31.0); Mean Corpuscular Volume 86.9 fL (80.0-94.0); Platelet Count 317 10^3/uL (130-400); Red Blood Cell Count 5.58 10^6/uL (4.70-6.10); Red Cell Dist. Width 13.9 % (11.5-14.5)
[2024-09-05 16:58] LABS: INR 0.99; PT 13.4 Sec (11.4-14.6)
[2024-09-05 16:59] LABS: APTT 32.3 Sec (23.4-35.0); Blood Urea Nitrogen 13 mg/dl (9-20); Calcium 9.7 mg/dl (8.4-10.2); Carbon Dioxide 25 mmol/L (22-30); Chloride 105 mmol/L (98-107); Estimated Creatinine Clearance 76 ml/min; Glucose 126 mg/dl (70-99); Potassium 4.4 mmol/L (3.5-5.1); Sodium 140 mmol/L (135-145); eGFR > 60.00
--- NOTE | 2024-09-05 17:07 | CM ---
Spoke with dgt Tiesha due to patient at multiple test off floor.
Alert awake oriented patient who lives alone in apartment with 3 steps to enter. He lives at [address] [place]. He is independent in driving and in all activities of daily living.Observation letter left in room and explained
to daughter.
No VN hx / No SNF history
Pharmacy [facility]
PCP DR Herman Mckinley
PLAN PT OT recommended acute rehab Will discuss with pt
[2024-09-05 17:11] LABS: Troponin I < 0.012 ng/ml
[2024-09-05 17:35] LABS: Glucose - Point of Care 107 mg/dl (70-99)
--- NOTE | 2024-09-05 17:46 | W.PN.UPDATE ---
Addendum entered and electronically signed by Isabell Etienne MD 09/05/24 18:02:
Sister updated.
Discussed neurology permissive hypertension to keep blood pressure less than 220/110
Every 2 hours neurochecks
Original Note:
Update Note
Progress Note Update
CTA noted
Continue supportive treatment, dual antiplatelets and statin
Cancel MRA
Permissive hypertension
D/W
[2024-09-05] MEDS: PLAVIX 75 MG PO (17:51)
[2024-09-05] MEDS: PRAVACHOL 40 MG PO (17:51)
[2024-09-05] MEDS: LOVENOX 40 MG SC (17:51)
--- NOTE | 2024-09-05 18:01 | PTCARENOTE ---
pt received at rapid response- aox4, left facial droop and weakness noted at RR with dysarthria, see paper in chart of NIH, left sided weakness slightly improved upon arrival to ICU. pt remains with mild dysarthria. NIH of 6. pt nsr to st on
monitor, anxious at times. per Dr. Bennett permissive htn of <220/110 and q2hr neurochecks ordered. pt with noted hematuria, Dr. Etienne aware unchanged from last rn- ok to give plavix and lovenox. pt sister at bedside and updated. lungs clear, no edema,
good pulses. belly soft and nontender +BS. all safety precautions in place, call theodore within reach.
Per Dr. Bennett and Dr. Jaimie jeter for first dose of lipitor tomorrow.
[2024-09-05] MEDS: APRESOLINE 5 MG IV (22:45)
--- NOTE | 2024-09-05 22:55 | PTCARENOTE ---
BP 170s/120s, ICU ORNAMENT STAPLER made aware, diastolic BP out of goal range, PRN hydralazine given
[2024-09-06] VITALS (18 sets, daily range): BP systolic 111–180; BP diastolic 74–126; PULSE 104; BMI 23.2
[2024-09-06 03:52] LABS: Hemoglobin 16.6 g/dL (13.0-18.0); Mean Corp Hgb Conc. 34.6 g/dL (33.0-37.0); Mean Corpuscular Volume 86.6 fL (80.0-94.0); Mean Platelet Volume 9.8 fL (7.4-10.4); Platelet Count 319 10^3/uL (130-400); Red Blood Cell Count 5.54 10^6/uL (4.70-6.10)
[2024-09-06 04:22] LABS: Blood Urea Nitrogen 15 mg/dl (9-20); Calcium 9.6 mg/dl (8.4-10.2); Carbon Dioxide 23 mmol/L (22-30); Chloride 105 mmol/L (98-107); Estimated Creatinine Clearance 68 ml/min; Glucose 137 mg/dl (70-99); HDL Cholesterol 56 mg/dl; LDL Cholesterol, Calculated 120 mg/dl; Potassium 4.2 mmol/L (3.5-5.1); Sodium 140 mmol/L (135-145); Total Cholesterol 204 mg/dl (50-199); Triglyceride 144 mg/dl (10-149); Very Low Density Lipoprotein 28 mg/dl (0-30); eGFR > 60.00
--- NOTE | 2024-09-06 06:23 | PTCARENOTE ---
AM labs sent. neuro status unchanged. pt offers no complaints at this time. call theodore in reach
--- NOTE | 2024-09-06 06:36 | CON.INTV ---
Addendum entered and electronically signed by Fermín Jarvis MD 09/06/24 12:35:
Discussed with neurology service
- Plan for MRI later today
- Patient not a candidate for TNK or IR guided procedures
- Patient can be transferred out of ICU today.
- Hairspring Adjuster service will sign off, please call as needed
Original Note:
Consultation
Consultation Request
Date/Time Consultation Requested: 09/05/2024
Date/Time Consultation Performed: 09/06/2024
Requesting Provider: Isabell Etienne
Performing Provider: Fermín Jarvis
Reason for Consultation: Stroke
Medical History
-
Chief Complaint: Weakness
History of Present Illness:
Patient is a 78-year-old gentleman who originally presented to hospital on 09/04 for evaluation of multiple falls. Also there was reported left-sided weakness and mild facial droop which eventually led to a stroke alert. CT scan was negative.
Since last known normal was the night before, patient was not felt to be a candidate for TNK. Also no large vessel occlusion was noted hence no thrombectomy performed. Patient was admitted to the hospital and was medically managed. 09/05, patient
has worsening neurodeficit which prompted a CTA and a CT which again was negative without any large vessel occlusion. Patient was not felt to be a candidate for thrombectomy or TNK again. He was upgraded to ICU in view of worsening mental status
and was managed with dual antiplatelet therapy as well as permissive hypertension and frequent neurochecks. Hairspring Adjuster consultation was requested for further input.
Past Medical History: Reports Other
Additional Past Medical History:
BPH
hypercholesterolemia
Past Surgical History: Reports Other
Additional Past Surgical History:
hernia surgery
Social History
Tobacco: Non-smoker
Alcohol: None
Drug: None
Living: Alone
Employment: Retired
Family History
Family History: Not pertinent
Allergies / Home Medications
Allergies / Home Medications
Allergies
Allergy/AdvReac Type Severity Reaction Status Date / Time
No Known Allergies Allergy Verified 09/04/24 17:31
Home Medications
�Medication �Instructions �Recorded �Confirmed �Last Taken �Type
finasteride 5 mg tablet 5 mg PO DAILY 01/18/16 09/04/24 09/04/24 History
pravastatin 10 mg tablet 10 mg PO DAILY 01/18/16 09/04/24 09/04/24 History
Review of Systems
-
Hematologic/Lymphatic: Other (All 14 systems reviewed and negative except as stated above in the history of present illness.)
Vitals / Labs / Diagnostic Testing
Vital Signs
Temp Pulse Resp BP Pulse Ox
98.2 F 93 17 173/108 95
09/06/24 03:43 09/06/24 06:00 09/06/24 06:00 09/06/24 06:00 09/06/24 06:00
Lab Data
09/06/24 03:45
09/06/24 03:45
Laboratory Results
09/05/24
16:40
PT 13.4
INR 0.99
APTT 32.3
Diagnostic Testing:
Physical Exam
-
HEENT: Normocephalic
Cardiovascular: S1/S2
Respiratory: Clear
GI: Soft
Neurology: Awake, Alert and Other (Left facial droop, left hemiplegia with slight movement noted in the left lower extremity.)
Skin: Warm
General: Comfortable
Assessment
-
#1. Multiple falls, left hemiplegis, concern for acute stroke
-CT x 2 and CTA without acute infarct or large vessel occlusion
-Patient was not a candidate for TNK or thrombectomy
-Currently on dual antiplatelets, aspirin and Plavix.
-Permissive hypertension completed for 24 hours, frequent neurochecks
- As needed hydralazine indication lowered to systolic 180 and diastolic of 100. Start low-dose valsartan. Discussed with Dr. Bennett from neurology
#2. History of BPH, benign urethral lesion and episodic hematuria.
-Monitor closely while on aspirin and Plavix
#3. Hyperlipidemia
-Continue statins
Critical Care time 58 mins -- The patient is admitted for acute critical illness for the treatment of vital organ failure and/or prevention of further life-threatening conditions. Total care includes time spent in review of history, physical exam,
medications, hemodynamic/ventilator parameters, laboratory data, imaging and discussion with house staff, pharmacy, respiratory therapy, campus chaplain, and nursing.
Data:
CXR09/2024: Unremarkable
CT head 09/04, 09/05: Unremarkable
CTA Head/Neck 09/2024: Atherosclerotic plaque at the carotid bulbs and proximal internal carotid arteries bilaterally without hemodynamically significant stenosis. Mild prominence of the supraclinoid portion of the right internal carotid artery,
cannot exclude mild aneurysmal dilatation.
No findings to suggest internal carotid artery or left vertebral artery dissection bilaterally. Dominant left vertebral artery. Tortuous, diminutive distal right vertebral artery (hypoplastic) which appears to end in the right PICA.
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 No proximal intracranial arterial stenosis otherwise seen bilaterally
[2024-09-06] MEDS: CYANOCOBALAMIN 1000 MCG IM (07:31)
[2024-09-06] MEDS: PLAVIX 75 MG PO (07:31)
[2024-09-06] MEDS: LOW STRENGTH ASPIRIN 81 MG PO (07:31)
[2024-09-06] MEDS: PROSCAR 5 MG PO (07:32)
--- NOTE | 2024-09-06 08:12 | PTCARENOTE ---
pt received from previous rn- remains with left sided facial droop and left sided weakness. NIH of 6- see flowsheet. nsr to st on monitor, room air. pt with hematuria continues, denies pain or discomfort. pt able to turn and reposition self.
educated on plan of care for shift- verbalized understanding. all safety precautions in place, call theodore within reach.
--- NOTE | 2024-09-06 09:18 | PTCARENOTE ---
Dr. Bennett at bedside with this RN- [facility] completed, changed from a 6 to a 9. Pt unable to move left arm or leg, no further orders at this time, pt ordered for MRI.
--- NOTE | 2024-09-06 09:20 | PTCARENOTE ---
Dr. Bennett at bedside with this RN- [facility] completed, changed from a 6 to a 9. Pt unable to move left arm, slight contraction to left leg, cannot lift, no further orders at this time, pt ordered for MRI. see md note.
--- NOTE | 2024-09-06 09:24 | PTCARENOTE ---
Dr. Bennett at bedside with this RN- [facility] completed, changed from a 6 to a 10. Pt unable to move left arm or left leg, cannot lift, no further orders at this time, pt ordered for MRI. see md note. ok per Dr. Bennett for q4hr neurochecks and downgrade to tele.
--- NOTE | 2024-09-06 09:30 | PTCARENOTE ---
Dr. Bennett at bedside with this RN- [facility] completed, changed from a 6 to a 9. Pt unable to move left arm, minimal from left leg, no further orders at this time, pt ordered for MRI. see md note. ok per Dr. Bennett for q4hr neurochecks and downgrade to tele.
--- NOTE | 2024-09-06 09:57 | W.PN.HOSP.TC ---
Today's Communication/Plan
-
MRI
PT OT
Continue aspirin Plavix and statin
Await echo read
Assessment / Plan
Assessment / Plan
78 y/o with falls. He woke up with weakness of the left side he waited and called PCP office and saw them around 4 PM he was seen there and was had asked to go to ER.
On examination patient is awake alert
Pupils equal and reactive
Facial droop left
Left neglect
Left Hemiparesis, cannot move UE and LE
Dysarthria
Cardiovascular system S1-S2 appreciated
Chest clear to auscultation
Abdomen soft and nontender
09-04-24-Head CT-no acute changes
09/05/2024-head CT no acute changes
09/05/2024 CTA head and neck-atherosclerotic plaque at the carotid bulbs and proximal internal carotid arteries bilaterally without significant stenosis. Mild prominence of the supraclinoid portion of the right ICA. No findings to suggest ICA or VA
dissection bilaterally. Dominant left VA. Tortuous diminutive right VA. 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
EKG-sinus tachycardia, LVH
# Multiple Falls, left facial droop, left side weakness.
NIH fluctuates
Likely secondary to CVA-left hemiplegia on exam
CT negative so far
Was out of the window for thrombolytic therapy per Admit note.
CTA did not show thrombus
Follow on telemetry
MRI ordered-check today
NIH and neuro checks to be continued
Echo was done yesterday. Read pending
Continue aspirin and Plavix, statin
Patient was cleared by speech for a regular diet
Neurology evaluation appreciated
Physiatry was consulted per request from PT this morning
# Leukocytosis-follow. CXR without any evidence of infection. Urinalysis also not indicative of infection
Possibly reactive
Aspiration could not be ruled out given CVA
Detailed discussion with the patient regarding aspiration precautions
# B 12 Def- Replace IM
# Enlarged prostate-continue finasteride
# Hyperlipidemia-continue statin
# History of nephrolithiasis
# DVT prophylaxis-Lovenox
# Full code
Family was updated twice yesterday.
Will wait for MRI to again call today
D/W RN at bed side
Part of this note was created using voice recognition system. Occasional wrong word or��sound alike� substitutions may have inadvertently occurred due to the inherent limitations of voice recognition software. If noted kindly bring it to my
attention for correction.
Anticipated Discharge: > 48 hours
Subjective/Interval History
-
Date of Service: September 06, 2024
Objective Data
-
Labs:
Laboratory Results
09/06/24
03:45
WBC 17.0 H
Hgb 16.6
Hct 48.0
Plt Count 319
Sodium 140
Potassium 4.2
Chloride 105
Carbon Dioxide 23
BUN 15
Creatinine 0.9
Glucose 137 H
Calcium 9.6
Vital Signs:
Vital Signs
Temp Pulse Resp BP Pulse Ox
98.4 F 85 17 120/83 94
09/06/24 08:00 09/06/24 08:00 09/06/24 08:00 09/06/24 08:00 09/06/24 08:00
I&O
09/05/24 09/06/24 09/07/24
06:59 06:59 06:59
Intake Total 240 / 240 480 / 480
Output Total 700 / 700 950 / 950
Balance -460 / -460 -470 / -470
[2024-09-06] MEDS: DIOVAN 40 MG PO (10:43)
--- NOTE | 2024-09-06 11:07 | W.PN.NEURO.1 ---
Today's Communication / Plan
-
appears that the stroke has completed.
downgrade
done with permissive HTN
ASA 81, Lipitor 80, Plavix x90 days for large vessel stenosis
Neuro Assessment/Plan
Assessment
09/[address] perfusion which showed proximal right M2 stenosis, no LVO, no core, no penumbra
was not TNK candidate as LKN was night before presentation; not thrombectomy candidate
completed permissive hypertension, can control BP
secondary prevention would do DAPT 90 days, Lipitor 80 as per SAMMPRIS trial showing superiority over stenting
Eventual brain MRI
Subjective/Objective
Subjective Data
Date of Service: September 06, 2024
overnight q1 hr neuro exam remained relatively stable - Nurses were giving NIH 5-6 (face 1, arm 2, leg 2). this morning patient appears lethargic, though reports that he slept well.
NIHSS 9 (dysarthria 1, face 1, arm 4, leg 3) overnight SBP ranging 120-180 without apparent cause.
Objective Data
Vital Signs
Temp Pulse Resp BP Pulse Ox
36.9 C 100 19 165/101 95
09/06/24 08:00 09/06/24 11:00 09/06/24 11:00 09/06/24 11:00 09/06/24 11:00
Lab Results
09/06/24 03:45
09/06/24 03:45
PT 13.4 Sec (11.4-14.6) 09/05/24 16:40
INR 0.99 09/05/24 16:40
APTT 32.3 Sec (23.4-35.0) 09/05/24 16:40
Sodium 140 mmol/L (135-145) 09/06/24 03:45
Potassium 4.2 mmol/L (3.5-5.1) 09/06/24 03:45
BUN 15 mg/dl (9-20) 09/06/24 03:45
Glucose 137 mg/dl (70-99) H 09/06/24 03:45
Calcium 9.6 mg/dl (8.4-10.2) 09/06/24 03:45
LDL Cholesterol, Calc 120 mg/dl 09/06/24 03:45
Vitamin B12 188 pg/ml (239-931) L 09/05/24 05:18
Patient Allergies
No Known Allergies Allergy (Verified 09/04/24 17:31)
Physical Exam
-
AAOx3, mild dysarthria
mild left facial droop
dense left hemiparesis, no movement LUE, trace movement LLE
sensation intact to touch
--- NOTE | 2024-09-06 12:41 | PTCARENOTE ---
see pt and ot note for left side weakness/movement and neuro flowsheet. pt with mild left arm and leg contraction. report given to Christos on 4W, pt sent with belongings.
--- NOTE | 2024-09-06 13:49 | PTCARENOTE ---
Received Pt from ICU. AAOx3. NIH score is 10. Pt denies any pain and discomfort. Can make needs known. Plan of care is ongoing.
--- NOTE | 2024-09-06 14:26 | CM ---
Transferred from ICU to Room 401-2.
--- NOTE | 2024-09-06 14:30 | PTOTSP ---
Speech Language Pathology
Pt seen for cognitive-linguistic tx. Mild dysarthria continues to be noted. Therapeutic reassessment of cognitive abilities completed via the Stalin Cognitive Assessment (MOCA), version 8.2. Pt with a score of 22/30 where normal range is 26-30.
Pt with mild cognitive deficits.
Pt also seen for dysphagia tx. Reviewed results/recommendations from [facility] completed 09/05, including silent aspiration with smaller amounts of aspiration and responsive aspiration with large amounts of aspiration. Provided ice chips for completion of
effortful swallows. Discussed completing effortful swallows throughout day.
Recommend:
(1) Regular solids/mildly thick liquids
(2) Aspiration precautions: sit upright, single cup sips only (no straws), slow rate
(3) Meds whole in puree
(4) Allow sips of thin water via cup and ice chips between meals post oral care per Aspiration Risk Hydration Protocol (ARHP)
(5) IDENTIFICATION CLERK to continue to follow
[2024-09-06] MEDS: LOVENOX 40 MG SC (17:03)
[2024-09-06] MEDS: LIPITOR 80 MG PO (17:03)
[2024-09-07] VITALS (8 sets, daily range): BP systolic 117–152; BP diastolic 74–102; PULSE 106; BMI 23.0
[2024-09-07 06:21] LABS: Hematocrit 46.9 % (39.0-52.0); Hemoglobin 15.9 g/dL (13.0-18.0); Mean Corp Hgb Conc. 33.9 g/dL (33.0-37.0); Mean Corpuscular Hgb 29.6 pg (27.0-31.0); Mean Corpuscular Volume 87.3 fL (80.0-94.0); Mean Platelet Volume 10.4 fL (7.4-10.4); Platelet Count 300 10^3/uL (130-400); Red Blood Cell Count 5.37 10^6/uL (4.70-6.10); White Blood Cell Count 10.8 10^3/uL (4.8-10.8)
[2024-09-07 06:42] LABS: Blood Urea Nitrogen 32 mg/dl (9-20); Calcium 9.3 mg/dl (8.4-10.2); Carbon Dioxide 25 mmol/L (22-30); Chloride 105 mmol/L (98-107); Estimated Creatinine Clearance 55 ml/min; Glucose 120 mg/dl (70-99); Magnesium 2.3 mg/dl (1.6-2.3); Potassium 3.9 mmol/L (3.5-5.1); Sodium 140 mmol/L (135-145); eGFR > 60.00
[2024-09-07] MEDS: PLAVIX 75 MG PO (08:46)
[2024-09-07] MEDS: PROSCAR 5 MG PO (08:46)
[2024-09-07] MEDS: DIOVAN 40 MG PO (08:46)
[2024-09-07] MEDS: LOW STRENGTH ASPIRIN 81 MG PO (08:46)
[2024-09-07] MEDS: CYANOCOBALAMIN 1000 MCG IM (08:47)
--- NOTE | 2024-09-07 15:56 | W.PN.HOSP.TC ---
Today's Communication/Plan
-
Rehab
Case management alerted.
Assessment / Plan
Assessment / Plan
78 y/o with falls. He woke up with weakness of the left side he waited and called PCP office and saw them around 4 PM he was seen there and was had asked to go to ER.
On examination patient is awake alert
Pupils equal and reactive
Facial droop left
Left Hemiplegia, cannot move UE and LE
Dysarthria
Cardiovascular system S1-S2 appreciated
Chest clear to auscultation
Abdomen soft and nontender
09-04-24-Head CT-no acute changes
09/05/2024-head CT no acute changes
09/05/2024 CTA head and neck-atherosclerotic plaque at the carotid bulbs and proximal internal carotid arteries bilaterally without significant stenosis. Mild prominence of the supraclinoid portion of the right ICA. No findings to suggest ICA or VA
dissection bilaterally. Dominant left VA. Tortuous diminutive right VA. 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
EKG-sinus tachycardia, LVH
# Multiple Falls, left facial droop, left side weakness.
Likely secondary to CVA-left hemiplegia on exam
Was out of the window for thrombolytic therapy per Admit note.
CTA did not show thrombus
MRI of the brain-acute to subacute infarction involving right ledezma radiata lateral to the posterior body of the right lateral ventricle and extending inferiorly, anteriorly and laterally to involve portion of the posterior aspect of the right
lentiform nucleus.
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
Likely thrombotic/atherosclerosis related
NIH and neuro checks to be continued
Echo Normal
Continue aspirin and Plavix, statin
Patient was cleared by speech for a regular diet
Neurology evaluation appreciated
# Leukocytosis-Resolved.
CXR without any evidence of infection. Urinalysis also not indicative of infection
Possibly reactive
# B 12 Def- Replace IM
# Enlarged prostate-continue finasteride
# Hyperlipidemia-continue statin
# History of nephrolithiasis
# DVT prophylaxis-Lovenox
# Full code
Spoke to patient's daughter and updated regarding MRI findings. Also discussed about previous stroke findings on the MRI. She remembers that the patient had some slurry speech when she spoke to him on the phone last summer around this time.
D/W Case management today re discharge to rehab tomorrow
D/W RN at bed side
Part of this note was created using voice recognition system. Occasional wrong word or��sound alike� substitutions may have inadvertently occurred due to the inherent limitations of voice recognition software. If noted kindly bring it to my
attention for correction.
Anticipated Discharge: Today
Subjective/Interval History
-
Date of Service: September 07, 2024
Objective Data
-
Labs:
Laboratory Results
09/07/24
05:01
WBC 10.8
Hgb 15.9
Hct 46.9
Plt Count 300
Sodium 140
Potassium 3.9
Chloride 105
Carbon Dioxide 25
BUN 32 H
Creatinine 1.1
Glucose 120 H
Calcium 9.3
Vital Signs:
Vital Signs
Temp Pulse Resp BP Pulse Ox
98.8 F 100 18 152/83 95
09/07/24 15:20 09/07/24 15:20 09/07/24 15:20 09/07/24 15:20 09/07/24 15:20
I&O
09/06/24 09/07/24 09/08/24
06:59 06:59 06:59
Intake Total 480 / 480 480 / 480
Output Total 950 / 950 150 / 150
Balance -470 / -470 330 / 330
--- NOTE | 2024-09-07 16:19 | W.PN.NEURO.1 ---
Today's Communication / Plan
-
ok to d/c to [facility] when able
Neuro Assessment/Plan
Assessment
/ stat CTA and CT perfusion which showed proximal right M2 stenosis, no LVO, no core, no penumbra
brain MRI imgs rev'd, stroke right centrum semiovale extending down to lentiform nucleus
was not TNK candidate as LKN was night before presentation; not thrombectomy candidate
completed permissive hypertension, can control BP
secondary prevention would do DAPT 90 days, Lipitor 80 as per SAMMPRIS trial showing superiority over stenting
spoke to patient Re: MRI findings, stroke reasonably smal and I'm hopeful for a fair to good recovery. that based on his waking up with the symptoms, even if he came in Wednesday morning there would still have been nothing that we could've done
Subjective/Objective
Subjective Data
Date of Service: September 07, 2024
completed the stroke
Objective Data
Vital Signs
Temp Pulse Resp BP Pulse Ox
37.1 C 100 18 152/83 95
09/07/24 15:20 09/07/24 15:20 09/07/24 15:20 09/07/24 15:20 09/07/24 15:20
Lab Results
09/07/24 05:01
09/07/24 05:01
PT 13.4 Sec (11.4-14.6) 09/05/24 16:40
INR 0.99 09/05/24 16:40
APTT 32.3 Sec (23.4-35.0) 09/05/24 16:40
Sodium 140 mmol/L (135-145) 09/07/24 05:01
Potassium 3.9 mmol/L (3.5-5.1) 09/07/24 05:01
BUN 32 mg/dl (9-20) H 09/07/24 05:01
Glucose 120 mg/dl (70-99) H 09/07/24 05:01
Calcium 9.3 mg/dl (8.4-10.2) 09/07/24 05:01
LDL Cholesterol, Calc 120 mg/dl 09/06/24 03:45
Vitamin B12 188 pg/ml (239-931) L 09/05/24 05:18
Patient Allergies
No Known Allergies Allergy (Verified 09/04/24 17:31)
--- NOTE | 2024-09-07 16:49 | CM ---
Reviewed PT OT recommendation for acute rehab with pt.
He requested [facility] rehab referral .
[facility] aware and will check in am for bed.
Pt aphasic but can be understood.
PLAN To [facility] if accepted
[2024-09-07] MEDS: LOVENOX 40 MG SC (18:43)
[2024-09-07] MEDS: NSS 1000 IV (18:43)
[2024-09-07] MEDS: LIPITOR 80 MG PO (18:43)
[2024-09-08] VITALS (7 sets, daily range): BP systolic 122–176; BP diastolic 72–100; PULSE 84–88; O2SAT 92; BMI 23.5
[2024-09-08 03:04] LABS: Urine Albumin 2+ (Neg - Trace); Urine Bilirubin Negative (Negative); Urine Character Clear (Clear); Urine Color Yellow; Urine Glucose Negative (Negative); Urine Ketone 2+ (Negative); Urine Leukocyte 2+ (Negative); Urine Nitrite Negative (Negative); Urine Occult Blood 4+ (Negative); Urine Urobilinogen Negative (Neg - 1+)
[2024-09-08 03:43] LABS: Urine Mucus Many
[2024-09-08 03:48] LABS: Urine Amorphous Seen; Urine Red Blood Cell >100 /HPF (0-2)
[2024-09-08 03:49] LABS: Urine Bacteria Many (Negative); Urine White Cell 40-50 /HPF (0-5)
[2024-09-08 03:50] LABS: Urine Calcium Oxalate Crystals Seen
[2024-09-08] MEDS: NSS 1000 IV (04:21)
[2024-09-08 07:02] LABS: Urine Squamous Cell >30 /LPF (Few)
--- NOTE | 2024-09-08 07:33 | W.PN.URO.CBU ---
Today's Communication / Plan
-
await ucx
Assessment / Plan
-
hx of BPH and intermittent hematuria
pt remains on proscar
fortunately minimal hematuria and it appears plavix will only be for a limited time
some dysuria- original ucx negative- repeat and make sure no infx
pt should make outpt f/u with dr tan- his established urologist- after discharge
Diagnosis
-
Date of Service: September 08, 2024
-
Patient Diagnosis:
hx of BPH and prostate urethral bleeding
Subjective
-
pt remains on asa and plavix
minimal hematuria and feels he is emptying
has had some intermittent dysuria- had repeat UA sent early this morning- yellow- but + for blood and wbc's
Objective
-
Vital Signs
Temp Pulse Resp BP Pulse Ox
98.1 F 92 18 162/100 97
09/08/24 03:46 09/08/24 03:46 09/08/24 03:46 09/08/24 03:46 09/08/24 03:46
Intake and Output
09/07/24 09/08/24 09/09/24
06:59 06:59 06:59
Intake Total 480 / 480 960 / 960
Output Total 150 / 150 600 / 600
Balance 330 / 330 360 / 360
Intake:
Oral fluids 480 / 480 960 / 960
Output:
Urine, Voided 150 / 150 600 / 600
Other:
Number of approximated MODERATE 3
amounts of urine
How many times incontinent 1 1
SMALL amount urine
How many times incontinent 1
MODERATE amount urine
How many times incontinent 1
SATURATED amount urine
Laboratory Results
09/07/24 05:01
09/07/24 05:01
Physical Exam
-
General - no acute distress
Genitalia - normal
[2024-09-08] MEDS: DIOVAN 40 MG PO ×2 (09:03→12:32)
[2024-09-08] MEDS: LOW STRENGTH ASPIRIN 81 MG PO (09:04)
[2024-09-08] MEDS: CYANOCOBALAMIN 1000 MCG IM (09:04)
[2024-09-08] MEDS: PROSCAR 5 MG PO (09:04)
[2024-09-08] MEDS: PLAVIX 75 MG PO (09:04)
--- NOTE | 2024-09-08 10:57 | CM ---
Addendum entered by Viviana Mccord RN 09/08/24 11:11:
Spoke with dgt Tiesha she agrees with dc to [facility] re[facility]. IMM reviewed with her and pt . Both agree with dc to [facility] today .
Original Note:
indicated pt ready for dc.
He requested [facility] referral .
[facility] accepted pt to [facility] rehab today.
notified .
Pt said he contacted sister of dc.
[facility]
[phone]
fax [phone]
PLAN To [facility] today
--- NOTE | 2024-09-08 11:48 | W.PN.HOSP.TC ---
Today's Communication/Plan
-
Increase Diovan
Rehab today
Assessment / Plan
Assessment / Plan
78 y/o with falls. He woke up with weakness of the left side he waited and called PCP office and saw them around 4 PM he was seen there and was had asked to go to ER.
On examination patient is awake alert
Pupils equal and reactive
Facial droop left
Left Hemiplegia, cannot move UE and LE
Dysarthria
Cardiovascular system S1-S2 appreciated
Chest clear to auscultation
Abdomen soft and nontender
09-04-24-Head CT-no acute changes
09/05/2024-head CT no acute changes
09/05/2024 CTA head and neck-atherosclerotic plaque at the carotid bulbs and proximal internal carotid arteries bilaterally without significant stenosis. Mild prominence of the supraclinoid portion of the right ICA. No findings to suggest ICA or VA
dissection bilaterally. Dominant left VA. Tortuous diminutive right VA. 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
Ultrasound of the kidneys and bladder-normal kidneys no focal abnormality of the bladder
EKG-sinus tachycardia, LVH
# Multiple Falls, left facial droop, left side weakness.
Likely secondary to CVA-left hemiplegia on exam
Was out of the window for thrombolytic therapy per Admit note.
CTA did not show thrombus
MRI of the brain-acute to subacute infarction involving right ledezma radiata lateral to the posterior body of the right lateral ventricle and extending inferiorly, anteriorly and laterally to involve portion of the posterior aspect of the right
lentiform nucleus.
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
Likely thrombotic/atherosclerosis related
NIH and neuro checks to be continued
Echo Normal
Continue aspirin and Plavix, statin
Patient was cleared by speech for a regular diet with mildly thick liquids
Neurology evaluation appreciated
# Hypertension-increase Diovan to 80 mg
# Leukocytosis-Resolved.
CXR without any evidence of infection. Urinalysis also not indicative of infection
Possibly reactive
# Constipation-enema ordered
# Microscopic hematuria-outpatient follow-up with urology
# B 12 Def- Replace IM
# Enlarged prostate-continue finasteride
# Hyperlipidemia-continue statin
# History of nephrolithiasis
# DVT prophylaxis-Lovenox
# Full code
D/W Daughter and updated.
D/W Case management today re discharge to rehab today
D/W RN
More than 30 minutes spent in discharge including
Final examination of the patient
Summarizing hospital stay
Instructions for continuing care to all relevant caregivers
Preparation of discharge records, prescriptions, and referral forms
Total time spent (in minutes): 36 min
Part of this note was created using voice recognition system. Occasional wrong word or��sound alike� substitutions may have inadvertently occurred due to the inherent limitations of voice recognition software. If noted kindly bring it to my
attention for correction.
Anticipated Discharge: Today
Subjective/Interval History
-
Date of Service: September 08, 2024
Objective Data
-
Vital Signs:
Vital Signs
Temp Pulse Resp BP Pulse Ox
98.0 F 83 18 122/72 95
09/08/24 07:00 09/08/24 11:00 09/08/24 11:00 09/08/24 11:00 09/08/24 07:00
I&O
09/07/24 09/08/24 09/09/24
06:59 06:59 06:59
Intake Total 480 / 480 960 / 960
Output Total 150 / 150 600 / 600
Balance 330 / 330 360 / 360
--- NOTE | 2024-09-08 11:56 | W.DS.TRANS ---
Addendum entered and electronically signed by Isabell Etienne MD 09/08/24 14:21:
Dictation- [id number]
Original Note:
DC Summary - [employer]
-
Discharge Instructions:
Discharge Diagnosis/Procedures Acute stroke right ledezma radiata
Vitamin B12 deficiency
Enlarged prostate
Hyperlipidemia
History of nephrolithiasis
Diet 2 Gram Sodium,Low Cholesterol
Activity As tolerated,With assistance
Driving Restrictions No driving
Other Services OT,PT,ST
Instructions:
Stand-Alone Forms:
Changes to Home Medications: Yes
Discharge Medications:
DC Medications w/original date entered in [employer]
finasteride 5 mg tablet 5 mg PO DAILY Urinary Issue 01/18/16
acetaminophen 325 mg tablet 650 mg (2 x 325 mg) PO Q4HPRN PRN pain #0 tabs 09/07/24
aspirin 81 mg chewable tablet 81 mg PO DAILY Blood clot prevention/tx #0 tabs 09/07/24
atorvastatin 80 mg tablet 80 mg PO QPM High cholesterol #0 tabs 09/07/24
clopidogrel 75 mg tablet 75 mg PO DAILY Blood clot prevention/tx #0 tabs 09/07/24
cyanocobalamin (vitamin B-12) 1,000 mcg capsule 1,000 mcg PO DAILY B12 Def #30 caps 09/07/24
polyethylene glycol 3350 17 gram oral powder packet (Miralax) 17 g PO DAILY Constipation #30 ea 09/08/24
sennosides 8.6 mg capsule (senna) 8.6 mg PO HS Constipation #30 caps 09/08/24
valsartan 80 mg tablet 80 mg PO DAILY Blood pressure #30 tabs 09/08/24
Home Medication Changes
all above new except Finastride
Pravastatin stopped
Pending Results: Yes (urine culture christine franco)
[2024-09-08] MEDS: SENOKOT 17.2 MG PO (12:32)
[2024-09-08] MEDS: MIRALAX 17 GRAMS PO (12:32)
[2024-09-08] MEDS: NSS IV (13:58)
[2024-09-08] MEDS: LIPITOR 80 MG PO (17:32)
[2024-09-08] MEDS: LOVENOX 40 MG SC (17:32)
--- NOTE | 2024-09-08 18:32 | PTCARENOTE ---
Received patient this am AAOx3. Pt off unit his am for a Renal Ultrasound. Pt tolerated diet well. IVF capped. Pt given a milk an molasses enema as ordered. Pt had 3 large bowel movements. Offered no complaints. Made patient comfortable. Cont
to assess patient status. Report called [facility] [facility]
== END 2024-09-08 18:40 | DRG 65 ==
LOC: 4 EAST ACU 15:01
PROVIDERS: Emergency Medicine; Nurse Practitioner Family; ADMITTING PHYSICIAN Hospitalist; ATTENDING PHYSICIAN Hospitalist; CONSULT PHYSICIAN Internal Medicine; CONSULT PHYSICIAN Physical Medicine & Rehabilitation; CONSULT PHYSICIAN Psychiatry & Neurology Clinical Neurophysiology; CONSULT PHYSICIAN Specialist; EMERGENCY PHYSICIAN Student in an Organized Health Care Education/Training Program; FAMILY PHYSICIAN Family Medicine
DX: I63.9 Cerebral infarction, unspecified (principal); G81.94 Hemiplegia, unspecified affecting left nondominant side; R29.810 Facial weakness; E53.8 Deficiency of other specified B group vitamins; N40.0 Benign prostatic hyperplasia without lower urinary tract symptoms; E78.00 Pure hypercholesterolemia, unspecified; Z87.442 Personal history of urinary calculi; K59.00 Constipation, unspecified; R29.6 Repeated falls; W19.XXXA Unspecified fall, initial encounter; I10 Essential (primary) hypertension; R13.10 Dysphagia, unspecified; R29.708 NIHSS score 8; R29.703 NIHSS score 3; R47.01 Aphasia
CPT/HCPCS: 0042T; 70450; 70496; 70498; 70551; 71046; 74230; 76770; 80048; 80053; 80061; 81003; 81015; 82607; 82962; 83036; 83735; 84484; 85025; 85027; 85610; 85730; 86803; 87086; 92507; 92523; 92526; 92610; 92611; 93005; 93306; 97110; 97112; 97163; 97167; 97530; 97535; 99285; Q9967